=== PATIENT | female | born 1970 | race Asian ===

== ENCOUNTER 2016-09-06 13:19 | Emergency (ER) | payer BC ==
[2016-09-06 15:33] VITALS: BP 171/110
--- NOTE | 2016-09-16 15:13 | UC ---
UC General HPI - HPI Summary HPI Summary: Pt here w/ Rt side jaw pain x 2 days. Noticed w/ chewing hard foods today. Has had pain here in the past w/ chewing but didn't think much of it as it went away w/o treatment. Denies h/o dislocation of jaw. She is able to speak, swallow and breath w/o difficulty. No MOBLEY, neck pain, fever, chills, N/V/D, rash. Denies dental pain and no recent trauma to head/face/mouth. - History of Current Complaint Chief Complaint: UCDentalProblem Stated Complaint: RIGHT SIDE JAW PAIN Time Seen by Provider: 09/06/16 16:42 Hx Obtained From: Patient Pain Intensity: 3 - Allergy/Home Medications Allergies/Adverse Reactions: Allergies Allergy/AdvReac Type Severity Reaction Status Date / Time No Known Allergies Allergy Verified 09/06/16 14:21 Home Medications: Home Medications Hydrochlorothiazide TAB* [Hydrodiuril TAB*] 25 mg PO DAILY 09/06/16 [History Confirmed 09/06/16] PMH/Surg Hx/FS Hx/Imm Hx Previously Healthy: Yes Cardiovascular History Of: Reports: Hypertension Cancer History Of: Denies: Breast Cancer - Surgical History Surgical History: None - Social History Occupation: Employed Full-time Alcohol Use: None Substance Use Type: None Smoking Status (MU): Never Smoked Tobacco Review of Systems Constitutional: Negative Skin: Negative Eyes: Negative ENT: Other - see HPI Respiratory: Negative Cardiovascular: Negative Gastrointestinal: Negative Motor: Other - see HPI Neurovascular: Negative Musculoskeletal: Other: - see HPI Neurological: Negative Psychological: Negative - concerned All Other Systems Reviewed And Are Negative: Yes Physical Exam Triage Information Reviewed: Yes Appearance: Well-Appearing, No Pain Distress, Thin Vital Signs: Initial Vital Signs Temp 98.5 F 09/06/16 14:18 Pulse 75 09/06/16 14:18 Resp 16 09/06/16 14:18 BP 177/112 09/06/16 14:18 Pulse Ox 100 09/06/16 14:18 Vital Signs Reviewed: Yes Eye Exam: Normal Eyes: Positive: Conjunctiva Clear ENT: Positive: Normal ENT inspection, Hearing grossly normal, Pharynx normal - mucosa moist Neck exam: Normal Neck: Positive: Supple, Nontender, No Lymphadenopathy Respiratory Exam: Normal Respiratory: Positive: Lungs clear Cardiovascular Exam: Normal Abdominal Exam: Normal Musculoskeletal: Positive: Strength Intact, Other: - Rt TMJ w/ mild TTP - no blanca edema but there is clicking w/ depression/elevation of Neurological Exam: Normal Neurological: Positive: Alert Skin Exam: Normal Course/Dx - Differential Dx - Multi-Symptom Provider Diagnoses: TMJ, Rt Discharge - Discharge Plan Condition: Stable Disposition: HOME Patient Education Materials: Temporomandibular Disorder (ED) Referrals: Elizabeth Vázquez NP [Primary Care Provider] - Additional Instructions: Rest by not chewing tough foods - you may drink liquids (ie. water, juice, broth , etc) and eat soft foods (ie. noodles, cooked potatoes, vegetables, soft fish, eggs, etc) to prevent from further injuring your jaw. Ice for swelling Heat for stiffness You may take ibuprofen 600mg every 6 hours with food for pain. This may be alternated with acetaminophen 650mg every 6 hours. You may benefit from a physical therapy referral as this has happened to your before. Call your PCP tomorrow for a referral for PT treating TMJ syndrome. *If you have difficulty moving you jaw (ie. becomes stuck or very painful), go to ED
== END 2016-09-06 17:03 | disposition home or self-care (01) ==
LOC: UCEAST 13:19
DX: M26.601 Right temporomandibular joint disorder, unspecified (principal); I10 Essential (primary) hypertension
CPT/HCPCS: 99202; G0463